=== PATIENT | female | born 1980 | race Caucasian/White ===

== ENCOUNTER 2020-12-23 18:39 | Emergency (ER) | payer MEDICAID, OTHER ==
[~2020-12-23] VITALS: Ht 160 cm; Wt 59.0 kg
--- NOTE | 2020-12-23 18:48 | NUR ---
Patient discharged to home in stable condition. Written and verbal after care instructions given. Patient verbalizes understanding of instructions. Stressed follow up or return to ER for worsening s/s.
[2020-12-23] MEDS ORDERED: LORAZEPAM 1 MG TABLET ONE (18:52)
[2020-12-23] MEDS ORDERED: LORAZEPAM 0.5 MG TABLET PO ONE (19:00)
== END 2020-12-23 18:49 | disposition home or self-care (01) ==
LOC: ER 18:40
DX: F41.9 Anxiety disorder, unspecified (principal)
CPT/HCPCS: A4663

== ENCOUNTER 2021-09-20 09:18 | Emergency (ER) | payer MEDICAID ==
[~2021-09-20] VITALS: Ht 162.6 cm; Wt 54.4 kg
[2021-09-20] MEDS: HYDROCODONE/APAP 5-325MG TABLET PO ONE (09:27)
--- NOTE | 2021-09-20 09:27 | NUR ---
Provider at bedside. Medication administered per provider order. Pt states not driving. Lac tray setup and ready for provider.
[2021-09-20] MEDS ORDERED: HYDROCODONE/APAP 5-325MG TABLET ONE (09:33)
[2021-09-20] MEDS ORDERED: TDAP DIPH,PERTUSS,TET VAC/PF 0.5 ML DISP.SYRIN IM ONE (09:40)
--- NOTE | 2021-09-20 09:40 | NUR ---
Tdap administered to (R) delt.
--- NOTE | 2021-09-20 09:44 | NUR ---
Cleaned area, applied Triple ABX ointment and dressing. Patient discharged to home in stable condition. Written and verbal after care instructions given. Patient verbalizes understanding of instructions. Stressed follow up or return to ER for worsening s/s.
[2021-09-20] MEDS ORDERED: NEOMY/BACITRA/POLYMYXIN B OINT UD PACKET TP ONE (09:50)
[2021-09-20] MEDS: TDAP DIPH,PERTUSS,TET VAC/PF 0.5 ML DISP.SYRIN IM ONE (09:50)
[2021-09-20 10:07] VITALS: BP 110/75
== END 2021-09-20 09:50 | disposition home or self-care (01) ==
LOC: ER 09:18
DX: S51.811A Laceration without foreign body of right forearm, initial encounter (principal); W22.03XA Walked into furniture, initial encounter; Y92.89 Other specified places as the place of occurrence of the external cause
CPT/HCPCS: 12002; 90471; 90715; 99283; J3490; A4663

== ENCOUNTER 2022-03-23 01:25 | Emergency (ER) | payer MEDICAID ==
[~2022-03-23] VITALS: Ht 160 cm; Wt 54.4 kg
--- NOTE | 2022-03-23 01:35 | NUR ---
Dr. Adler at bedside for MSE
[2022-03-23] MEDS ORDERED: ALPRAZOLAM 0.5 MG TABLET ONE (01:44)
[2022-03-23] MEDS ORDERED: ALPRAZOLAM 0.25 MG TABLET PO ONE (01:45)
[2022-03-23] MEDS ORDERED: ALPR2TAB7 PO (01:47)
[2022-03-23 01:57] VITALS: BP 110/70
== END 2022-03-23 01:57 | disposition home or self-care (01) ==
LOC: ER 01:25
DX: F41.9 Anxiety disorder, unspecified (principal); Z76.0 Encounter for issue of repeat prescription
CPT/HCPCS: A4663

== ENCOUNTER 2022-09-04 01:15 | Emergency (ER) | payer MEDICAID ==
[~2022-09-04 01:15] MED LIST: ALPR2TAB7 PO
--- NOTE | 2022-09-04 01:40 | NUR ---
Called patient in the waiting room to triage, checked outside, patient left
--- NOTE | 2022-09-04 01:45 | NUR ---
PATIENT LEFT WITHOUT BEING SEEN
== END 2022-09-04 03:31 | disposition left against medical advice (07) ==
LOC: ER 01:18
DX: Z53.21 Procedure and treatment not carried out due to patient leaving prior to being seen by health care provider (principal)

== ENCOUNTER 2022-09-28 04:58 | Emergency (ER) | payer MEDICAID ==
[~2022-09-28] VITALS: Ht 162.6 cm; Wt 54.4 kg
--- NOTE | 2022-09-28 05:13 | NUR ---
Dr. Merino at bedside for MSE.
--- NOTE | 2022-09-28 05:15 | NUR ---
Patient eloped from facility. ER physician notified.
== END 2022-09-28 05:17 | disposition left against medical advice (07) ==
LOC: ER 05:06
DX: F41.9 Anxiety disorder, unspecified (principal); R00.0 Tachycardia, unspecified; Z59.00 Homelessness unspecified
CPT/HCPCS: A4663